=== PATIENT | female | born 1985 | race Caucasian/White ===

== ENCOUNTER → 2020-08-05 | Outpatient (CLI) | payer BC ==
--- NOTE | 2020-08-05 23:57 | RAD ---
RIBS LEFT AND PA CHEST History: Reason: LEFT SIDE RIB PAIN W/O KNOWN INJURY. WORSENING PAIN / Spl. Instructions: / History: Technique: PA view the chest and additional views of the left ribs. Comparison: None. Findings: No consolidation or pleural effusion. No pneumothorax. Normal heart size. Surgical clips right upper quadrant. Acute left anterior eighth rib fracture. Impression: 1. Acute left anterior eighth rib fracture. Electronically signed by: Jorge Courtney DO (08/05/2020 11:54 PM) [facility]
== END | disposition home or self-care (01) ==
LOC: RAD 20:28
PROVIDERS: ATTEND Hospitalist
DX: S22.32XA Fracture of one rib, left side, initial encounter for closed fracture (principal); X58.XXXA Exposure to other specified factors, initial encounter; Y93.89 Activity, other specified; Y92.89 Other specified places as the place of occurrence of the external cause; Y99.8 Other external cause status
CPT/HCPCS: 71101